=== PATIENT | female | born 1940 ===

== ENCOUNTER 2020-04-07 12:58 | Emergency (ER) | payer OTHER ==
[~2020-04-07] VITALS: Ht 162.6 cm; Wt 118.2 kg
[2020-04-07] MEDS ORDERED: tranexamic acid 100mg/ml inj. TP ONE (13:20)
[2020-04-07] MEDS ORDERED: LIDOcaine 4% (40 mg/ml) topical solution 50ml TP ONE (13:20)
--- NOTE | 2020-04-07 13:23 | NUR ---
NOSE CLAMP PLACED AT 1323
--- NOTE | 2020-04-07 14:51 | NUR ---
Uma Scott at bedside. Will monitor patient another 30 minutes before d/c.
[2020-04-07 15:24] VITALS: BP 160/80
--- NOTE | 2020-04-07 15:24 | NUR ---
Pt given nose clamp to take home. Pt educated on use.
== END 2020-04-07 15:25 | disposition home or self-care (01) ==
LOC: ER 12:59
DX: R04.0 Epistaxis (principal)
CPT/HCPCS: 99281; 99283